=== PATIENT | female | born 1985 | race Caucasian/White ===

== ENCOUNTER 2021-01-10 06:57 | Day surgery (SDC) | payer OTHER ==
[2021-01-09 15:09] VITALS: BMI 28.1
[2021-01-10] MEDS ORDERED: Acetaminophen 500 MG TAB ONE (07:37)
[2021-01-10] MEDS ORDERED: Lidocaine 1% MPF 2 ML VIAL ONE (07:48)
[2021-01-10] MEDS ORDERED: Midazolam HCl 2 mg/2 ml Vial ONE (08:38)
[2021-01-10] MEDS ORDERED: Fentanyl 100 MCG/2 ML VIAL ONE ×2 (09:55→12:47)
[2021-01-10] MEDS ORDERED: PROPOFOL 20 ML ONE (09:55)
[2021-01-10] MEDS ORDERED: EPINEPHrine 1 MG/ML AMP ONE (09:59)
[2021-01-10] MEDS ORDERED: Bupivacaine PF 0.5% 30 ML VIAL ONE (09:59)
[2021-01-10] MEDS ORDERED: Ondansetron PF 4 MG/2 ML Vial ONE ×2 (09:59→14:28)
[2021-01-10] MEDS ORDERED: Dexamethasone 4 mg/ml Vial ONE (09:59)
[2021-01-10] MEDS ORDERED: Rocuronium Bromide 10 MG/ML (10ML VIAL) ONE (10:00)
[2021-01-10] MEDS ORDERED: Glycopyrrolate 0.2 MG/ML 5 ML SYRINGE ONE (11:00)
[2021-01-10] MEDS ORDERED: PHENYLEPHRINE-NS 100 MCG/ML 10 ML SYRINGE ONE (11:00)
[2021-01-10] MEDS ORDERED: ePHEDrine Sulfate 50 MG/10 ML VIAL ONE (11:16)
[2021-01-10] MEDS ORDERED: Ketorolac Tromethamine 30 MG/ML VIAL ONE (11:19)
[2021-01-10] MEDS ORDERED: Meperidine HCl/PF 25 MG/ML VIAL ONE (12:16)
[2021-01-10 16:00] LABS: Hemoglobin 12.1 g/dL (12.0-15.5); Mean Corpuscular HGB CONC 32.9 g/dL (32.0-36.0); Mean Corpuscular Hemoglobin 31.1 pg (27.0-33.0); Mean Corpuscular Volume 94.6 fl (81.6-98.3); Mean Platelet Volume 11.2 fl (7.4-10.4); Platelet Count 245 10x3/uL (150-450); RBC Distribution Width 13.2 % (11.5-14.5); Red Blood Cell (RBC) Count 3.89 10x6/uL (3.90-5.03); White Blood Cell (WBC) Count 13.3 10x3/uL (3.5-10.5)
[2021-01-10] MEDS ORDERED: HYDROcodone/Acetaminophen 5/325 mg Tablet ONE (17:19)
== END 2021-01-10 18:15 | disposition home or self-care (01) ==
LOC: CSHSDC 06:57
PROVIDERS: ATTEND Obstetrics & Gynecology
PROC: 0UT74ZZ Resection of Bilateral Fallopian Tubes, Percutaneous Endoscopic Approach (ICD-10-PCS; principal; 2021-01-10)
PROC: 0U5F4ZZ Destruction of Cul-de-sac, Percutaneous Endoscopic Approach (ICD-10-PCS; principal; 2021-01-10)
PROC: 0UT94ZZ Resection of Uterus, Percutaneous Endoscopic Approach (ICD-10-PCS; principal; 2021-01-10)
DX: N84.0 Polyp of corpus uteri (principal); N80.0 Endometriosis of uterus; N80.2 Endometriosis of fallopian tube; N80.1 Endometriosis of ovary; N80.3 Endometriosis of pelvic peritoneum; Z79.899 Other long term (current) drug therapy; Z91.018 Allergy to other foods
CPT/HCPCS: 85027; 88307; J0171; J0690; J1100; J1885; J2175; J2250; J2405; J2704; J3010; S0020